=== PATIENT | female | born 1975 | race Caucasian/White ===

== ENCOUNTER 2019-11-23 17:56 | Emergency (ER) | payer MEDICARE, OTHER ==
[~2019-11-23] VITALS: Ht 152.4 cm; Wt 56.7 kg
[2019-11-23 18:37] VITALS: BP_SYST 103
[2019-11-23] MEDS ORDERED: ACETAMINOPHEN 500 MG TABLET PO ONE (21:45)
[2019-11-23 22:10] LABS: BASOPHILS % (AUTO) 0.2 % (0.0-2.0); EOSINOPHILS % (AUTO) 0.8 % (0.0-4.0); HEMATOCRIT 43.3 % (36-48); HEMOGLOBIN 14.2 g/dL (12.0-16.0); LYMPHOCYTES % (AUTO) 26.5 % (20.5-51.5); MEAN CORPUSCULAR HEMOGLOBIN 28 pg (27-31); MEAN CORPUSCULAR HGB CONC 33 % (32-36); MEAN CORPUSCULAR VOLUME 85 fL (79.0-98.0); MONOCYTES % (AUTO) 9.7 % (1.7-9.3); NEUTROPHILS % (AUTO) 62.8 % (40.0-70.0); PLATELET COUNT (AUTO) 243 K/uL (130-430); RED BLOOD CELL COUNT(AUTO) 5.06 MIL/uL (4.2-6.2); WHITE BLOOD COUNT (AUTO) 5.6 K/uL (4.8-10.8)
[2019-11-23 22:11] LABS: LYMPHOCYTES # (AUTO) 1.5 K/uL (1.0-5.5); MONOCYTES # (AUTO) 0.5 K/uL (0.0-1.0); NEUTROPHILS # (AUTO) 3.5 K/uL (1.8-7.7)
[2019-11-23 22:48] LABS: BILIRUBIN,URINE NEGATIVE (NEGATIVE); BLOOD, URINE NEGATIVE (NEGATIVE); CLARITY/URINE CLEAR (CLEAR); COLOR,URINE YELLOW (YELLOW); GLUCOSE,URINE NEGATIVE (NEGATIVE); KETONES,URINE NEGATIVE (NEGATIVE); LEUKOCYTE ESTERASE ,URINE NEGATIVE (NEGATIVE); NITRITE, URINE NEGATIVE (NEGATIVE); PROTEIN URINE NEGATIVE (NEGATIVE); UROBILINOGEN,URINE 0.2 (0.2-1.0)
[2019-11-24 02:18] VITALS: BP_SYST 113
== END 2019-11-24 02:18 | disposition home or self-care (01) ==
LOC: SED 17:56
DX: R10.31 Right lower quadrant pain (principal); R10.32 Left lower quadrant pain; E07.9 Disorder of thyroid, unspecified
CPT/HCPCS: 36415; 74176; 76700; 81003; 81025; 85025; 99285; J7030; J7040